=== PATIENT | female | born 2000 | race Hispanic/Latino ===

== ENCOUNTER 2022-11-22 11:59 | Inpatient (IN) | payer OTHER ==
[2022-11-22 19:00] VITALS: BMI 29.9
[2022-11-22] MEDS ORDERED: Carboprost 250 MCG/ML AMP IM PRN (19:03)
[2022-11-22] MEDS ORDERED: Diphenoxylate HCl/Atropine Tablet PO PRN ×2 (19:03)
[2022-11-22] MEDS ORDERED: hydrALAZINE 20 MG/ML VIAL SLOW IVP PRN (19:03)
[2022-11-22] MEDS ORDERED: Acetaminophen 500 MG TAB PO PRN (19:03)
[2022-11-22] MEDS ORDERED: Misoprostol 200 MCG TAB PR PRN (19:03)
[2022-11-22] MEDS ORDERED: Promethazine HCl 25 MG/ML VIAL IM PRN (19:03)
[2022-11-22] MEDS ORDERED: Ibuprofen 800 MG TAB PO PRN (19:03)
[2022-11-22] MEDS ORDERED: Tranexamic Acid 1,000 MG/10 ML VIAL IVP PRN (19:03)
[2022-11-22] MEDS ORDERED: Lidocaine 1% (PF) 30 ML VIAL SC PRN (19:03)
[2022-11-22] MEDS ORDERED: Methylergonovine 0.2 MG/ML VIAL IM PRN (19:03)
[2022-11-22] MEDS ORDERED: Ondansetron PF 4 MG/2 ML Vial IVP PRN (19:03)
[2022-11-22] MEDS ORDERED: Penicillin G Potassium 5 MILL.UNITS in Sodium Chloride 0.9% 100 ML IVPB SCH (19:15)
[2022-11-22] MEDS ORDERED: NS w/ Oxytocin 30 units 500 ML IV SCH ×2 (19:15)
[2022-11-22 19:58] LABS: Hemoglobin 10.9 g/dL (12.0-15.5); Mean Corpuscular HGB CONC 33.7 g/dL (32.0-36.0); Mean Corpuscular Hemoglobin 28.6 pg (27.0-33.0); Mean Corpuscular Volume 84.8 fl (81.6-98.3); Mean Platelet Volume 12.7 fl (7.4-10.4); Platelet Count 286 10x3/uL (150-450); RBC Distribution Width 13.2 % (11.5-14.5); Red Blood Cell (RBC) Count 3.81 10x6/uL (3.90-5.03); White Blood Cell (WBC) Count 11.5 10x3/uL (3.5-10.5)
[2022-11-22] MEDS: Misoprostol 100 MCG TAB VAG SCH ×2 (20:20→22:15)
[2022-11-22 20:25] LABS: ALT (SGPT) 20 U/L (8-55); AST (SGOT) 18 U/L (5-30); Alkaline Phosphatase 407 U/L (40-100); Anion Gap 13 mmol/L (10-20); BUN (Urea Nitrogen) 9 mg/dL (8.4-21.0); Bilirubin, Total 0.2 mg/dL (0.2-1.2); Calc. Creatinine Clearance 154 mL/min (70-130); Calcium 8.8 mg/dL (7.8-10.44); Carbon Dioxide 19 mmol/L (22-29); Chloride 107 mmol/L (98-107); Estimated GFR 126; Globulin 3.5 g/dL (2.4-3.5); Glucose 100 mg/dL (70-105); Potassium 3.8 mmol/L (3.5-5.1); Protein, Total 6.5 g/dL (6.0-8.3); Sodium 135 mmol/L (136-145)
[2022-11-22 20:46] LABS: HBSAg Index 0.13 S/CO (0-0.99); Hep B Surf Ag - L&D Non-Reactive S/CO (NonReactive)
[2022-11-22 20:51] LABS: Syphilis Antibody Nonreactive (Nonreactive); Syphilis Antibody Index 0.05 S/CO (<1.00 Non-Reactive)
[2022-11-22] MEDS ORDERED: Penicillin G 2.5 MILL.units 2.5 MILL.UNITS in Premix Bag 1 BAG IVPB SCH (23:30)
[2022-11-23] MEDS ORDERED: fentaNYL/Ropivacaine Epidural 100 ML ONE (00:23)
[2022-11-23] MEDS ORDERED: Penicillin G Potassium 5 MILL.UNITS VIAL ONE (01:08)
[2022-11-23] MEDS: Misoprostol 100 MCG TAB VAG SCH ×2 (01:17→04:15)
[2022-11-23] MEDS: fentaNYL 50 mcg/mL 1 mL Vial SLOW IVP PRN ×3 (01:27→17:35)
[2022-11-23] MEDS: Penicillin G 2.5 MILL.units 2.5 MILL.UNITS in Premix Bag 1 BAG IVPB SCH ×4 (05:05→16:42)
[2022-11-23 13:54] LABS: Hep C IgG Ab Non-Reactive S/CO (NonReactive); Hep C Index 0.06 S/CO (0-0.79)
[2022-11-23] MEDS ORDERED: Acetaminophen 325 MG TAB PO PRN (18:03)
[2022-11-23] MEDS ORDERED: Ondansetron PF 4 MG/2 ML Vial IVP PRN ×2 (18:03→18:36)
[2022-11-23] MEDS ORDERED: Moisturizing Cream (Eucerin) 113 GM JAR TOP PRN (18:03)
[2022-11-23] MEDS ORDERED: Naloxone HCl 0.4 mg/ml Vial IVP PRN ×2 (18:03)
[2022-11-23] MEDS ORDERED: Promethazine HCl 25 MG/ML VIAL IM PRN (18:03)
[2022-11-23] MEDS ORDERED: ePHEDrine Sulfate 50 MG/10 ML VIAL SLOW IVP PRN (18:03)
[2022-11-23] MEDS ORDERED: Lactated Ringer's 500 ML IV PRN (18:03)
[2022-11-23] MEDS ORDERED: diphenhydrAMINE 50 MG/ML VIAL IVP PRN (18:03)
[2022-11-23] MEDS ORDERED: Communication Order-Pharmacy FS SCH (18:15)
[2022-11-23] MEDS ORDERED: fentaNYL 2 mcg/Ropivacaine 0.2% Epidural 100 ML CADD EPIDURAL SCH (18:15)
[2022-11-24] MEDS ORDERED: Benzocaine-Menthol 82.5 ML CAN TOP PRN (00:03)
[2022-11-24] MEDS ORDERED: Promethazine HCl 25 MG/ML VIAL IM PRN (00:03)
[2022-11-24] MEDS ORDERED: Methylergonovine 0.2 MG/ML VIAL IM PRN (00:03)
[2022-11-24] MEDS ORDERED: Milk Of Magnesia 30 ML UDCUP PO PRN (00:03)
[2022-11-24] MEDS ORDERED: Bisacodyl 10 MG SUPP PR PRN (00:03)
[2022-11-24] MEDS ORDERED: Misoprostol 200 MCG TAB VAG PRN (00:03)
[2022-11-24] MEDS ORDERED: Boostrix 0.5 ML (Tdap) VIAL (>/=7 yrs of age) IM ONE (00:03)
[2022-11-24] MEDS ORDERED: Ondansetron PF 4 MG/2 ML Vial IVP PRN (00:03)
[2022-11-24] MEDS ORDERED: hydrALAZINE 20 MG/ML VIAL SLOW IVP PRN (00:03)
[2022-11-24] MEDS ORDERED: Ibuprofen 800 MG TAB PO SCH (00:30)
[2022-11-24] MEDS ORDERED: NS w/ Oxytocin 30 units 500 ML IV SCH (00:30)
[2022-11-24] MEDS: Ferrous Sulfate 325 MG TAB PO SCH ×2 (07:34→18:09)
[2022-11-24] MEDS: Prenatal Vitamin 1 TAB PO SCH (08:48)
[2022-11-24] MEDS: Docusate 100 MG CAP PO SCH ×2 (08:48→21:52)
[2022-11-24] MEDS ORDERED: Bupivacaine 0.25% HCL 30 ML VIAL ONE (14:06)
[2022-11-24] MEDS: Ibuprofen 800 MG TAB PO SCH ×2 (15:47→21:52)
[2022-11-24] MEDS: Misoprostol 100 MCG TAB VAG SCH ×2 (19:16→19:17)
[2022-11-25] MEDS: Ibuprofen 800 MG TAB PO SCH (05:02)
[2022-11-25 08:05] VITALS: BP 127/66; TEMP 97.5
[2022-11-25] MEDS: Ferrous Sulfate 325 MG TAB PO SCH (08:10)
[2022-11-25] MEDS: Docusate 100 MG CAP PO SCH (08:19)
[2022-11-25] MEDS: Prenatal Vitamin 1 TAB PO SCH (08:19)
== END 2022-11-25 11:40 | disposition home or self-care (01) | DRG 805 ==
LOC: CSHLD 17:51 → CSHPP 11-24 01:05
PROVIDERS: ADMIT Family Medicine; ATTEND Family Medicine
PROC: 3E0P7VZ Introduction of Hormone into Female Reproductive, Via Natural or Artificial Opening (ICD-10-PCS; 2022-11-22)
PROC: 10H07YZ Insertion of Other Device into Products of Conception, Via Natural or Artificial Opening (ICD-10-PCS; 2022-11-22)
PROC: 10E0XZZ Delivery of Products of Conception, External Approach (ICD-10-PCS; principal; 2022-11-23)
PROC: 10907ZC Drainage of Amniotic Fluid, Therapeutic from Products of Conception, Via Natural or Artificial Opening (ICD-10-PCS; 2022-11-23)
PROC: 0HQ9XZZ Repair Perineum Skin, External Approach (ICD-10-PCS; 2022-11-23)
PROC: 3E033VJ Introduction of Other Hormone into Peripheral Vein, Percutaneous Approach (ICD-10-PCS; 2022-11-23)
PROC: 0UQMXZZ Repair Vulva, External Approach (ICD-10-PCS; 2022-11-23)
DX: O26.62 Liver and biliary tract disorders in childbirth (principal); K83.1 Obstruction of bile duct; Z37.0 Single live birth; O99.824 Streptococcus B carrier state complicating childbirth; O99.284 Endocrine, nutritional and metabolic diseases complicating childbirth; E03.8 Other specified hypothyroidism; O99.214 Obesity complicating childbirth; E66.9 Obesity, unspecified; O70.0 First degree perineal laceration during delivery; Z79.899 Other long term (current) drug therapy; O99.72 Diseases of the skin and subcutaneous tissue complicating childbirth; L30.9 Dermatitis, unspecified; O71.82 Other specified trauma to perineum and vulva; Z3A.37 37 weeks gestation of pregnancy; O69.81X0 Labor and delivery complicated by cord around neck, without compression, not applicable or unspecified
CPT/HCPCS: 36415; 51702; 80053; 85027; 86780; 86803; 86850; 86900; 86901; 87340; J2540; J2590; J3010; S0020